=== PATIENT | female | born 1995 | race Caucasian/White ===

== ENCOUNTER 2021-01-09 16:27 | Emergency (ER) | payer OTHER ==
[~2021-01-09] VITALS: Ht 162.6 cm; Wt 119.7 kg
--- NOTE | 2021-01-09 17:36 | NUR ---
Patient discharged to home in stable condition. Written and verbal after care instructions given. Patient verbalizes understanding of instructions. Stressed follow up or return to ER for worsening s/s.
== END 2021-01-09 17:40 | disposition home or self-care (01) ==
LOC: ER 16:31
DX: R25.3 Fasciculation (principal); R51.9 Headache, unspecified; E66.9 Obesity, unspecified; Z68.42 Body mass index [BMI] 45.0-49.9, adult
CPT/HCPCS: 70450; A4663

== ENCOUNTER 2021-11-14 20:21 | Emergency (ER) | payer OTHER ==
[~2021-11-14] VITALS: Ht 162.6 cm; Wt 121.6 kg
[2021-11-14] MEDS ORDERED: LEVO112T5 PO (20:39)
--- NOTE | 2021-11-14 21:10 | NUR ---
EDMD at bedside to discuss findings and dispo. EDMD spent approx 10-15min discussing course of action with pt. He determined to give her a GI cocktain, a script and referral to GI to r/o gastric alcer. Pt's vss, pe wnl, otherwise healthy individual besides the hypothyroidism. 145/65. Pt waiting patiently for meds.
[2021-11-14] MEDS ORDERED: MAG HYDROX/AL HYDROX/SIMETH 30 ML LIQUID UDC PO ONE (21:15)
[2021-11-14] MEDS ORDERED: LIDOCAINE VISCUS 2% 15 ML UDC MM ONE (21:15)
[2021-11-14] MEDS ORDERED: DICYCLOMINE HCL LIQ 10 MG/5 ML UDC PO ONE (21:15)
[2021-11-14] MEDS ORDERED: MAGNESIUM HYDROXIDE 30 ML LIQUID UDC ONE (21:31)
[2021-11-14] MEDS ORDERED: LIDOCAINE VISCUS 2% 15 ML UDC ONE (21:32)
[2021-11-14] MEDS ORDERED: DICYCLOMINE HCL LIQ 10 MG/5 ML UDC ONE (21:32)
[2021-11-14] MEDS ORDERED: SUCR1ORA PO (21:54)
[2021-11-14] MEDS ORDERED: ONDA4TAB5 PO (21:54)
[2021-11-14] MEDS ORDERED: DICY20TA11 PO (21:54)
[2021-11-14] MEDS ORDERED: HYDR25SU13 RC (21:54)
[2021-11-14] MEDS ORDERED: PANT40TA2 PO (21:54)
[2021-11-14 22:05] LABS: HEMATOCRIT 41.9 % (31.2-41.9); MEAN CORPUSCULAR HEMOGLOBIN 26.8 uug (24.7-32.8); MEAN CORPUSCULAR VOLUME 79.8 fL (75.5-95.3); PLATELET COUNT (AUTO) 332 K/uL (179-408)
[2021-11-14 22:14] LABS: CREATININE 0.7 mg/dL (0.6-1.3); POTASSIUM 3.8 mmol/L (3.5-5.1)
[2021-11-14 22:19] LABS: BILIRUBIN,DIRECT 0.1 mg/dL (0.0-0.2); BILIRUBIN,TOTAL 0.5 mg/dL (0.2-1.0); TOTAL PROTEIN, SERUM 7.9 g/dL (6.4-8.2)
--- NOTE | 2021-11-14 22:40 | NUR ---
EDMD at bedside to discuss aftercare with pt. Pt confirmed understanding of instructions and said she will comply.
--- NOTE | 2021-11-14 22:57 | NUR ---
Pt given dc instructions and med info, told that pharmacist can answer any additional questions she may have. pt confirmed understanding of aftercare and seems motivated to make the changes needed to reduce risk factor of HTN and GERD. Discussed some diet and exercise infor with her to help in her lifestyle changes. Pt aaox4, VSS, oxygenating and perfusing well. Pt signed dc instructions and ambulated out of dept with steady gait.
[2021-11-14 23:02] VITALS: BP 139/65
== END 2021-11-14 22:52 | disposition home or self-care (01) ==
LOC: ER 20:24
DX: R10.10 Upper abdominal pain, unspecified (principal); K21.9 Gastro-esophageal reflux disease without esophagitis; E66.9 Obesity, unspecified; Z68.42 Body mass index [BMI] 45.0-49.9, adult; E03.9 Hypothyroidism, unspecified; Z79.890 Hormone replacement therapy; Z79.899 Other long term (current) drug therapy
CPT/HCPCS: 36415; 83690; 85025; A4663